=== PATIENT | female | born 1990 | race Caucasian/White ===

== ENCOUNTER 2018-08-19 22:12 | Observation (INO) ==
--- NOTE | 2018-08-20 08:53 | Internal Med History&Physical ---
Date of Encounter: 08/20/18 Time of Encounter: 08:52 Internal Medicine - H&P: HPI Chief complaint: ataxia Admitted From: Intrahospital Transfer History of present illness: Ms. 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 She was in [facility] until 12 AM, when she developed 'stomach bug' with nausea, vomiting, chills and subjective fever for half a day. She felt fine on 08/17 and 08/18. 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 Her BP was 123/75, and lowest BG documented was 92. She went home, and slept for 5-6 hours, but symptoms did not improve, so she went to [facility] ER, where she had a head CT without acute abnormality, and was transferred to [facility]. Currently, she has persistent dizziness with movement of head (as if the room is moving horizontally from side to side). She feels like going in a spiral due to dizziness when she closes her eyes. She has glowing black spots of variable intensity and size in both visual moseley. She had ne episode of expressive aphasia on 08/19 before going to [facility]. Never had such symptoms in the past. Never had migraines. Mild neck pain/occipital headache in the past. Dry cough. No falls. A 10-point pertinent ROS is otherwise negative for current headache, n, v, abd pain, d, c, fevers, chills, dysuria, focal motor deficits or other symptoms on a 10-point ROS. Pertinent labs: 08/19/18 Cr 0.68 Na [address] head: no acute abnormality # Dizziness, ataxia, flashers in front of eyes - Differential could be vestibulitis with recent viral illness, atypical migraine though there is no history, cerebellar CVA though there are no risk factors - Considering acute onset qand episode of expressive aphasia, will check MRI brain, and request neurology consult - less likely to be drug effect, will check UDS to complete work up - treatment pending further diagnostic work up # VTE prophy: not indicated unless prolonged admission Past Med Surg Social Fam HX - Past Medical History Medical history: arthritis Psychiatric history: no psych history - Past Surgical History Surgical History: Additional surgical history: gallbladder removal , plate and 6 screws in Right ankle. - Social History Smoking Status: Never smoker Smokeless Tobacco Status: No Alcohol use: none Drug use: none - Family History Mother Adopted: No Family Member Ethnicity: Non- Living Status: Still Living Hx Family Cardiac Disorders: Yes (Grandmother-pacemaker) Hx Family Respiratory Disorders: Yes (Mom- COPD) Hx Family Cancer: Yes (Mother) - Additional Family History Additional family history: Grandfather had brain aneurysm Internal Medicine - H&P: Meds Acetaminophen [Tylenol] 650 mg PO Q6HR PRN tablet 12/01/17 [Rx] Norgestrel-Ethinyl Estradiol [Cryselle-28 Tablet] 1 tab PO DAILY 12/01/17 [History] OxyCODONE/APAP 5/325 [Percocet 5/325 MG] 1 each PO Q6H PRN 3 Days #12 tablet 12/01/17 [Rx] Allergy/AdvReac Type Severity Reaction Status Date / Time naproxen [From Naprosyn] AdvReac Vomiting Verified 12/01/17 07:22 All Systems PM: A 10-system review of systems was performed and is negative for pertinent findings except as documented above in the HPI. - Constitutional Vitals: Temp Pulse Resp BP Pulse Ox 98.3 F 82 16 119/81 98 08/20/18 07:32 08/20/18 07:32 08/20/18 07:32 08/20/18 07:32 08/20/18 07:32 Exam: alert, oriented, no acute cardioresp distress no photophobia, EOM intact no icterus moist oral mucosa no nuchal rigidity S1, S2, no MRG CTABL, no wheezes or rales no ankle edema soft NT, ND, no guarding or rebound alert, oriented x 3, no dysarthria, no focal motor deficits, there was occasional non-sustained nystagmus on right lateral gaze with fast component to right, not always reproducible, no cranial nerve deficits able to stand with closed eyes, but sways if tries to walk, gait not assessed for safety - Time Spent With Patient Total time spent is greater than 50% in coordination of care (as documented) at patient's floor/unit and/or counseling patient:
[2018-08-20] MEDS ORDERED: Naloxone 0.4 MG/ML INJ IVP PRN (09:45)
[2018-08-20] MEDS ORDERED: Gadolinium Contrast Agent (WT Based) IV PRN (09:49)
[2018-08-20 10:43] LABS: Basophils % 0.7 %; Eosinophils # 0.1 K/mcL (0.0-0.6); Eosinophils % 0.9 %; Hematocrit 39.3 % (35.3-44.9); Hemoglobin 13.2 g/dL (11.5-15.4); Immature Granulocytes % 0.3 % (0-4); Lymphocytes % 34.7 %; Mean Corpuscular HGB Conc 33.6 g/dL (31.6-35.5); Mean Corpuscular Hemoglobin 29.7 pg (28.0-33.3); Mean Corpuscular Volume 88.3 fL (83.0-100.0); Mean Platelet Volume 8.9 fL (9.4-12.4); Monocytes # 0.4 K/mcL (0.0-1.3); Monocytes % 7.4 %; Neutrophils # 3.2 K/mcL (1.6-8.9); Platelet Count 254 K/mcL (140-400); Red Blood Count 4.45 M/mcL (3.82-4.97)
[2018-08-20 10:51] LABS: INR 1.1; Prothrombin Time 12.5 Seconds (9.4-12.1)
[2018-08-20 11:02] LABS: Alanine Aminotransferase 37 Units/L (7-52); Albumin 3.8 g/dL (3.5-5.7); Albumin/Globulin Ratio 1.5 (1.1-2.2); Alkaline Phosphatase 66 Units/L (34-104); Aspartate Amino Transferase 25 Units/L (13-39); BUN/Creatinine Ratio 12 (6-26); Bilirubin,Total 0.6 mg/dL (0.3-1.0); Blood Urea Nitrogen 7 mg/dL (6-20); Calcium 8.8 mg/dL (8.6-10.3); Carbon Dioxide 24 mEq/L (23-29); Chloride 107 mEq/L (98-107); Globulin 2.6 g/dL (2.4-3.5); Glucose 95 mg/dL (70-105); Osmolality,Calculated 284 (280-300); Potassium 3.7 mEq/L (3.5-5.1); Sodium 138 mEq/L (136-145); Total Protein 6.4 g/dL (6.4-8.9); eGFR For Non-African Americans > 60 (> 60)
[2018-08-20] MEDS: Acetaminophen 325 MG TABLET PO PRN ×2 (11:44→18:40)
--- NOTE | 2018-08-20 15:54 | Neurology - Consult Note ---
Addendum entered and electronically signed by Ritu Smith MD 08/20/18 16:31: No AM labs indicated. Neurology appreciated, paging center will help connect with ophthalmology Original Note: Date of Encounter: 08/20/18 Time of Encounter: 15:50 Assessment and Plan (1) Vision abnormalities Current Visit: Yes Status: Acute I am unable to identify any abnormalities that might explain this phenomena. The MRI scan of the brain is normal I see no evidence of papilledema or optic nerve injury. There is no nystagmus identified. No opsoclonus. She has normal strength bulk and tone. Deep tendon reflexes are normal. Sensation is normal as well. Patient denies any specific emotional trauma or recent stress. However I am not able to attribute any of this to her primary neurologic etiology. Consider ophthalmologic consultation. Otherwise I will reevaluate her at your request. No further recommendations. History of Present Illness HPI: The chart was reviewed, the patient was seen and examined personally. I did review the MRI scans of the brain as well as her laboratory testing. Ms. Meadows is a 27 year old female who denies any recent history of recurrent visual phenomena or illness presents with complaints of flashing lights and spots with glowing halos around them. Apparently this happened initially on . She developed symptoms of gastritis on the day which subsided over thereafter. She states that she felt fine on August 17 and . [employer] work on August 19 she felt sudden onset of dizziness and blurred vision and black spots in flashing lights in front of her eyes. She states that these spots a persistent ever since then. She also complains of persistent dizziness and does describe of horizontal spinning movements of the room. She denies any headache currently. Denies illicit drug use. Her lab work was all normal and as mentioned above I did review the MRI scan of the brain was normal as well. Past Med Surg Social Fam HX - Past Medical History Medical history: arthritis Psychiatric history: no psych history - Past Surgical History Surgical History: Additional surgical history: gallbladder removal , plate and 6 screws in Right ankle. - Social History Smoking Status: Never smoker Smokeless Tobacco Status: No Alcohol use: none Drug use: none - Family History Mother Adopted: No Family Member Ethnicity: Non- Living Status: Still Living Hx Family Cardiac Disorders: Yes (Grandmother-pacemaker) Hx Family Respiratory Disorders: Yes (Mom- COPD) Hx Family Cancer: Yes (Mother) Medications and Allergies Loratadine/Pseudophed (12 HR) [Claritin D (12HR)] 1 tab PO BID 08/20/18 [History] Phentermine HCl [Adipex-P] 37.5 mg PO DAILY 08/20/18 [History] Allergy/AdvReac Type Severity Reaction Status Date / Time naproxen [From Naprosyn] AdvReac Vomiting Verified 12/01/17 07:22 All Systems: The remainder of the systems were reviewed and are negative Review of Systems: Balance of the systems review is negative. Physical Examination - Vital Signs Vital Signs: Initial Vital Signs Temp Pulse Resp BP Pulse Ox 98.1 F 73 16 119/80 98 08/20/18 01:20 08/20/18 01:20 08/20/18 01:20 08/20/18 01:20 08/20/18 01:20 - Exam Exam: General Examination: *CONSTITUTIONAL: normal *GENERAL APPEARANCE OF PATIENT appears healthy and well groomed *EYES: pupils equal, round, reactive to light and accommodation, conjunctiva clear without masses or ulcerations, fundi normal. *CARDIOVASCULAR no peripheral edema, distal temperature normal, dorsalis pedis pulses normal. Refer to vital signs Musculoskeletal: *GAIT AND STATION normal, with normal Romberg testing, no abnormalities such as broad base gait or spasticity *ASSESSMENT OF MUSCLE STRENGTH IN THE UPPER AND LOWER EXTREMITIES deltoid, bicep, tricep, hood fitter strength, hip flexors ,anterior tibialis, dorsoflexion of the foot normal. *MUSCLE TONE IN THE UPPER AND LOWER EXTREMITIES normal. No abnormal movements, fasciculations or atrophy identified. Neurological: *ORIENTATION to time and place *RECURRENT AND REMOTE MEMORY intact *ATTENTION AND CONCENTRATION are normal *LANGUAGE FUNCTION no significant aphasia or dysarthia was noted. *FUND OF KNOWLEDGE aware of current events, past history, vocabulary *MENTAL attention span and concentration normal. *CN II optic fundi were normal, no papilledema noted. *CN III,IV, PERRLA extraocular eye movements were full, no nystagmus and no ptosis noted. *CN V shows normal sensation and jaw opens symmetrically. *CN VII shows normal facial movement symmetrically, upper and lower bilaterally. *CN VIII shows no significant hearing loss on examination in the office. There is no nystagmus identified. *CN IX,,X palate elevated symmetrically and normal gag reflex was noted. *CN XI normal strength in the sternocleidomastoid muscles, symmetrical shoulder shrugging. *CN XII tongue protruded in the midline, with normal strength and movement. *SENSORY EXAMINATION pinprick sensation intact, and light touch(vibration sense). *REFLEXES: deep tendon reflexes were normal and symmetrical , grade 2/4 diffusely, no pathological reflexes were noted. *CEREBELLAR TESTING normal finger to nose, heel/knee/iniguez, her gait is somewhat apprehensive however not ataxic. *PAIN LEVEL -0 Results - Laboratory Findings CBC and BMP: 08/20/18 10:06 08/20/18 10:06 Abnormal lab findings: Abnormal lab results MPV 8.9 fL (9.4-12.4) L 08/20/18 10:06 PT 12.5 Seconds (9.4-12.1) H 08/20/18 10:06 Creatinine 0.59 mg/dL (0.60-1.20) L 08/20/18 10:06 Consult Discharge Plan - Plan Referrals: Opal Benson, EKG/ECG TECHNICIAN [Primary Care Provider] - (Unable to make follow up appointment due to office being closed. Please call Wednesday to schedule appointment for 5-7 days from date of discharge. )
--- NOTE | 2018-08-20 18:03 | Internal Medicine Consult Note ---
Date of Encounter: 08/20/18 Time of Encounter: 17:59 Internal Medicine - CN: HPI - Data of Consult Requesting Physician: Ann Z Idris Patient is a 27-year-old white female who reports black spots sometimes glowing spots everywhere in her visual field sometimes associated with dizziness since night, the night before last. The patient reports that she feels like she is in a hurricaine like her surroundings are moving or someone is moving her head around. She denies any eye pain or decreased vision. She denies any history of eye injuries or eye surgeries. She reports that she does not wear corrective lenses. Examination revealed visual acuity without correction is 20/20 in the right eye and 20/20 in the left eye (near equivalent Snellen). The pupils were equal round and reactive to light with no relative afferent pupillary defects noted. Ocular motility testing revealed full excursions of both eyes to all cardinal positions of gaze. Confrontation visual moseley were full and normal in both eyes. Slit-lamp examination revealed normal eyelids in both eyes. The conjunctiva was normal in both eyes. The cornea was clear in both eyes. The anterior chamber was shallow grade slit to +1 in both eyes. The anterior chamber was clear in both eyes. The iris was normal in both eyes. Intraocular pressures were normal at 14 mmHg in the right eye and 12 mmHg in the left eye via applanation. The pupils were dilated with 1% tropicamide and 2-1/2% phenylephrine drops. Following dilation of the pupils further examination revealed a clear lens in both eyes. The vitreous was clear in both eyes. The optic nerve heads were normal in both eyes with a cup-to-disc ratio of 0.3 in the right eye and 0.2 in the left eye. The macula, posterior pole, retinal vessels, and retinal periphery were normal in both eyes. Impression: 1. Subjective visual disturbance. This may be due to a migraine event and / or may be stress related. 2. Anatomical narrow anterior chamber angles in both eyes. I do not believe that this is at all related to the patient's above noted subjective visual disturbance. I did review with patient the warning symptoms of angle-closure glaucoma including a red irritated eye, severe eye pain, eyebrow aches, nausea vomiting and a mid-dilated pupil. I would recommend that the patient be evaluated for this at her soonest convenience after discharge. I would would be happy to see her in my office for this evaluation if desired. - Consult Narrative History of present illness: Ms. Meadows is a 27 year old female Past Med Surg Social Fam HX - Past Medical History Medical history: arthritis Psychiatric history: no psych history - Past Surgical History Surgical History: Additional surgical history: gallbladder removal , plate and 6 screws in Right ankle. - Social History Smoking Status: Never smoker Smokeless Tobacco Status: No Alcohol use: none Drug use: none - Family History Mother Adopted: No Family Member Ethnicity: Non- Living Status: Still Living Hx Family Cardiac Disorders: Yes (Grandmother-pacemaker) Hx Family Respiratory Disorders: Yes (Mom- COPD) Hx Family Cancer: Yes (Mother) Internal Medicine - CN: Meds Phentermine HCl [Adipex-P] 37.5 mg PO DAILY 08/20/18 [History] RX: Loratadine/Pseudophed (12 HR) [Claritin D (12HR)] 1 tab PO BID 08/20/18 [History] Allergy/AdvReac Type Severity Reaction Status Date / Time naproxen [From Naprosyn] AdvReac Vomiting Verified 12/01/17 07:22 Internal Med - CN: Exam - Constitutional Vitals: Temp Pulse Resp BP Pulse Ox 98.1 F 90 16 113/75 98 08/20/18 15:32 08/20/18 15:32 08/20/18 15:32 08/20/18 15:32 08/20/18 15:32 Internal Medicine - CN: Reslt - Labs CBC & Chem 7: 08/20/18 10:06 08/20/18 10:06 Labs: Short CBC 08/20/18 Range/Units 10:06 WBC 5.8 (4.3-11.1) K/mcL Hgb 13.2 (11.5-15.4) g/dL Hct 39.3 (35.3-44.9) % Plt Count 254 (140-400) K/mcL Neutrophils # 3.2 (1.6-8.9) K/mcL BMP 08/20/18 10:06 Sodium 138 Potassium 3.7 Chloride 107 Carbon Dioxide 24 BUN 7 Creatinine 0.59 L Glucose 95 Calcium 8.8 Liver Function 08/20/18 Range/Units 10:06 Total Bilirubin 0.6 (0.3-1.0) mg/dL AST 25 (13-39) Units/L ALT 37 (7-52) Units/L Alkaline Phosphatase 66 (34-104) Units/L Albumin 3.8 (3.5-5.7) g/dL - ABG Interpretation ABG results: PT/INR, D-dimer PT 12.5 Seconds (9.4-12.1) H 08/20/18 10:06 - Impressions Impressions Brain MRI 08/20/18 09:49 IMPRESSION: Essentially unremarkable contrast-enhanced brain MRI. Low T1 signal within the upper cervical spine may be secondary to anemia, although nonspecific by imaging. D/ / 08/20/2018 12:04:52 Leon Meléndez MD / partha Interpreting Provider: Leon Meléndez MD Consult Discharge Plan - Plan Referrals: Opal Benson, BETSEY [Primary Care Provider] - (Unable to make follow up appointment due to office being closed. Please call Wednesday to schedule appointment for 5-7 days from date of discharge. )
[2018-08-20] MEDS ORDERED: Ibuprofen 400 MG TABLET PO ONE (20:59)
--- NOTE | 2018-08-21 14:58 | Internal Med Progress Note ---
Hospitalist Progress Note - Encounter Date of Encounter: 08/21/18 Time of Encounter: 14:56 - Subjective Interval History: Patient still reported occasional dizziness, lasted about 3-4 minutes. She also having black spots on both visual moseley. She had occasional headache but not constant. She has no fever, chills, or night sweats. She has no joint pain, or swelling. She denies skin rashes, oral ulcers, or jaw claudication. - Exam Vitals: Temp Pulse Resp BP Pulse Ox 98.7 F 93 18 129/85 98 08/21/18 12:22 08/21/18 12:22 08/21/18 12:22 08/21/18 12:22 08/21/18 12:22 Exam: alert, oriented, no acute cardioresp distress no photophobia, EOM intact no icterus moist oral mucosa no nuchal rigidity S1, S2, no MRG CTABL, no wheezes or rales no ankle edema soft NT, ND, no guarding or rebound alert, oriented x 3, no dysarthria, no focal motor deficits, there was occasional non-sustained nystagmus on right lateral gaze with fast component to right, not always reproducible, no cranial nerve deficits able to stand with closed eyes, but sways if tries to walk, gait not assessed for safety - Assessment and Plan (1) Vertigo Current Visit: Yes Status: Acute Assessment and Plan: 27-year-old female presented with acute onset of vertigo with associated visual field defects. She also reported expressive aphasia. Vertigo was intermittent, lasted about 3-4 minutes each time. Visual field defects was described as moving black spots on both eyes. - Initially stroke was suspected, however, brain MRI as no acute infarct. Neurology was consulted, patient does not have papilledema on fundal exam per neurology. Ophthalmology was consulted, patient has normal visual acuity. The angle of the anterior chamber was slightly narrowed, narrow angle glaucoma was suspected, outpatient follow-up with mechanic's assistant was suggested. - Given the patient history of obesity and on bolus control pills, pseudotumor cerebri was suspected, however, patient has normal fundal exam, there acute onset of vertigo cannot be explained. - Central nervous system vasculitis was suspected, SHIRLEY, ESR, CRP were ordered. - Susac syndrome was suspected given both vision and inner ear symptoms. However, MRI does not showed typical changed of Susac disease. - Antivert for symptoms control. (2) Visual field defect Current Visit: Yes Status: Acute Assessment and Plan: same as above. DVT Prophylaxis: Ambulation. - Time Spent with Patient Total time spent is greater than 50% in coordination of care (as documented) at patient's floor/unit and/or counseling patient: Greater than 35 minutes Plan of Care Discussed with: patient Internal Medicine: Result - Labs CBC & Chem 7: 08/20/18 10:06 08/20/18 10:06 - ABG Interpretation ABG results: PT/INR, D-dimer PT 12.5 Seconds (9.4-12.1) H 08/20/18 10:06 - Impressions Impressions Brain MRI 08/20/18 09:49 IMPRESSION: 1. Essentially unremarkable contrast-enhanced brain MRI. 2. Low T1 signal within upper cervical spine may be secondary to anemia, although nonspecific by imaging. Other differential includes marrow involving or marrow replacing processes. D/ / 08/20/2018 12:04:52 Leon Meléndez MD / partha Interpreting Provider: Leon Meléndez MD - VTE Reasons for not Prescribing Prophylaxis: Treatment not Indicated - Low risk for VTE Consult Discharge Plan - Plan Referrals: Opal Benson, BETSEY [Primary Care Provider] - (Unable to make follow up appointment due to office being closed. Please call Wednesday to schedule appointment for 5-7 days from date of discharge. )
[2018-08-21] MEDS: Acetaminophen 325 MG TABLET PO PRN (19:54)
[2018-08-22 10:50] VITALS: BP 120/84
[2018-08-22] MEDS: Acetaminophen 325 MG TABLET PO PRN (13:49)
--- NOTE | 2018-08-22 14:30 | Discharge Summary ---
- NOTES TO OUTPATIENT PROVIDER Notes to Outpatient Provider: f/u with Yanira Mckinley within a week. Orders not resulted at time of discharge: Pending orders 08/21/18 15:39 SHIRLEY IgG KEEGAN rflx IFA Routine Date of Encounter: 08/22/18 Time of Encounter: 14:28 - Discharge Diagnosis (1) Vertigo Priority: Primary Status: Acute (2) Visual field defect Priority: Primary Status: Acute Hospital course: Ms. 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 She was in [facility] until 08/16 AM, when she developed 'stomach bug' with nausea, vomiting, chills and subjective fever for half a day. She felt fine on 08/17 and 08/18. 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 Her BP was 123/75, and lowest BG documented was 92. She went home, and slept for 5-6 hours, but symptoms did not improve, so she went to [facility] ER, where she had a head CT without acute abnormality, and was transferred to [facility]. Currently, she has persistent dizziness with movement of head (as if the room is moving horizontally from side to side). She feels like going in a spiral due to dizziness when she closes her eyes. She has glowing black spots of variable intensity and size in both visual moseley. She had ne episode of expressive aphasia on 08/19 before going to [facility]. Never had such symptoms in the past. Never had migraines. MRI of brain was performed and no acute infarct or other abnormalities were detected. Neuro was consulted and a fundal exam did not show papilledema. Ophthalmology was consulted and norrow-angle glaucoma was suspected. Her ESR and CRP both are within normal limits. Her vertigo and visual field defects although not abated, but not worsened. At this time, there is no clear etiology was identified. Viral infection such was vestibular neuronitis was suspected. Pt will be discharged home. She will f/u with ophthalmology within a week. Discharge discussed with: patient Time spent discussing smoking cessation with patient: more than 10 minutes - Time Spent with Patient Total time spent providing and/or coordinating discharge services: Greater than 30 minutes - Discharge Medications Prescriptions: Meclizine [Antivert] 25 mg PO TID PRN #20 tablet PRN Reason: Dizziness Home Medications: Loratadine/Pseudophed (12 HR) [Claritin D (12HR)] 1 tab PO BID 08/20/18 [History] Phentermine HCl [Adipex-P] 37.5 mg PO DAILY 08/20/18 [History] Meclizine [Antivert] 25 mg PO TID PRN #20 tablet 08/22/18 [Rx] Allergies/Adverse Reactions: Allergy/AdvReac Type Severity Reaction Status Date / Time naproxen [From Naprosyn] AdvReac Vomiting Verified 12/01/17 07:22 Date of admission: 08/19/18 23:54 Primary care physician: Opal Benson CNP Consults: 08/20/18 09:51 Consult to Neurology [CONS] Routine Consulting Provider: [facility] Reason for Consult: ataxia, flashers, transient aphasia Call Completed: Yes 08/20/18 16:37 Consult to Physician [CONS] Routine Consulting Provider: Yunier Doyle Reason for Consult: Flashing spots in front of eyes Call Completed: Yes Anticipated date of discharge: 08/22/18 - Constitutional Vitals: Temp Pulse Resp BP Pulse Ox 98.8 F 95 18 120/84 96 08/22/18 10:48 08/22/18 10:48 08/22/18 10:48 08/22/18 10:48 08/22/18 10:48 General appearance: Present: A&O X 3 Exam: alert, oriented, no acute cardioresp distress no photophobia, EOM intact no icterus moist oral mucosa no nuchal rigidity S1, S2, no MRG CTABL, no wheezes or rales no ankle edema soft NT, ND, no guarding or rebound alert, oriented x 3, no dysarthria, no focal motor deficits, there was occasional non-sustained nystagmus on right lateral gaze with fast component to right, not always reproducible, no cranial nerve deficits able to stand with closed eyes, but sways if tries to walk, gait not assessed for safety - Patient Status Disposition: Home, Self-Care Condition: Fair Functional capacity at discharge: independent ambulation - Discharge Instructions Follow Up With: Opal Benson CNP [Primary Care Provider] - (Unable to make follow up appointment due to office being closed. Please call Wednesday to schedule appoint ment for 5-7 days from date of discharge. ) - Diet and Activity Activity: resume usual activities as tolerated Diet: advance to your usual diet - VTE Reasons for not Prescribing Prophylaxis: Treatment not Indicated - Low risk for VTE
[2018-08-24 09:58] LABS: ANA IgG by ELISA DETECTED (None Detected)
== END 2018-08-22 15:19 | disposition home or self-care (01) ==
LOC: 3BNU
PROVIDERS: ADMIT Internal Medicine Nephrology; ATTEND Internal Medicine Nephrology

== ENCOUNTER 2020-07-25 21:47 | Observation (INO) ==
[2020-07-25] MEDS: Ringers Solution, Lactated 1,000 ML IVC SCH (22:45)
[2020-07-25 23:04] LABS: Bacteria,Urine Few per hpf (None-Few); Bilirubin,Urine Negative (Negative); Blood,Urine Negative (Negative); Calcium Oxalate Crystals,Urine Present; Clarity,Urine Turbid (Clear); Color,Urine Yellow (Yellow); Glucose,Urine (UA) Normal (Normal); Ketones,Urine Negative (Negative); Leukocyte Esterase,Urine Small (Negative); Mucus,Urine Moderate per lpf (None-Few); Nitrite,Urine Negative (Negative); Protein,Urine 50 mg/dL (Neg-Trace); RBC,Urine 0-3 per hpf (0-3); Specific Gravity,Urine 1.026 (1.010-1.025); Squamous Epithelial Cell,Urine Many per hpf (None-Few)
[2020-07-26] MEDS: Ringers Solution, Lactated 1,000 ML IVC SCH (00:53)
== END 2020-07-26 01:55 | disposition home or self-care (01) ==
LOC: 1NENULAB
PROVIDERS: ADMIT Advanced Practice Midwife; ATTEND Advanced Practice Midwife

== ENCOUNTER → 2020-08-13 20:34 | Observation (INO) ==
[2020-08-13 19:53] LABS: Protein/Creatinine Ratio,Urine 0.14 mg/mg (0.00-0.20)
[2020-08-13 19:59] LABS: Basophils % 0.3 %; Eosinophils % 0.5 %; Hematocrit 36.8 % (35.3-44.9); Hemoglobin 11.9 g/dL (11.5-15.4); Immature Granulocytes % 0.4 % (0-4); Lymphocytes # 2.2 K/mcL (0.6-4.6); Lymphocytes % 28.3 %; Mean Corpuscular HGB Conc 32.3 g/dL (31.6-35.5); Mean Corpuscular Hemoglobin 26.1 pg (28.0-33.3); Mean Corpuscular Volume 80.7 fL (83.0-100.0); Monocytes # 0.6 K/mcL (0.0-1.3); Monocytes % 7.1 %; Neutrophils # 4.9 K/mcL (1.6-8.9); Platelet Count 244 K/mcL (140-400); Red Blood Count 4.56 M/mcL (3.82-4.97); Red Cell Distribution Width 13.2 % (11.5-14.5); Segmented Neutrophils % 63.4 %; White Blood Count 7.7 K/mcL (4.3-11.1)
[2020-08-13 20:07] LABS: Alanine Aminotransferase 7 Units/L (7-52); Aspartate Amino Transferase 11 Units/L (13-39); BUN/Creatinine Ratio 13 (6-26); Blood Urea Nitrogen 6 mg/dL (6-20); Lactate Dehydrogenase 138 Units/L (140-271); Uric Acid 4.1 mg/dL (2.3-7.6); eGFR For African Americans > 60 (> 60); eGFR For Non-African Americans > 60 (> 60)
[~2020-08-13 20:34] MED LIST: Acetaminophen/Butalbital/CaffeineTABLET PO PRN
== END | disposition home or self-care (01) ==
LOC: 1NENULAB
PROVIDERS: ADMIT Obstetrics & Gynecology; ATTEND Obstetrics & Gynecology

== ENCOUNTER 2020-08-17 10:16 | Inpatient (IN) ==
[2020-08-17 09:33] LABS: Basophils % 0.2 %; Eosinophils % 0.1 %; Hematocrit 37.2 % (35.3-44.9); Hemoglobin 11.8 g/dL (11.5-15.4); Immature Granulocytes % 0.4 % (0-4); Lymphocytes % 9.3 %; Mean Corpuscular HGB Conc 31.7 g/dL (31.6-35.5); Mean Corpuscular Hemoglobin 25.8 pg (28.0-33.3); Mean Corpuscular Volume 81.4 fL (83.0-100.0); Mean Platelet Volume 9.7 fL (9.4-12.4); Monocytes # 0.5 K/mcL (0.0-1.3); Monocytes % 4.7 %; Neutrophils # 9.4 K/mcL (1.6-8.9); Platelet Count 232 K/mcL (140-400); Red Blood Count 4.57 M/mcL (3.82-4.97); Red Cell Distribution Width 13.2 % (11.5-14.5); Segmented Neutrophils % 85.3 %
[2020-08-17 09:37] LABS: Protein/Creatinine Ratio,Urine 0.17 mg/mg (0.00-0.20)
[2020-08-17 09:40] LABS: Bilirubin,Urine Negative (Negative); Blood,Urine Negative (Negative); Clarity,Urine Clear (Clear); Color,Urine Yellow (Yellow); Glucose,Urine (UA) Normal (Normal); Ketones,Urine Negative (Negative); Leukocyte Esterase,Urine Negative (Negative); Nitrite,Urine Negative (Negative); PH,Urine 6.5 pH Units (5.0-8.0); Protein,Urine Trace mg/dL (Neg-Trace); Specific Gravity,Urine > 1.030 (1.010-1.025)
[2020-08-17 09:52] LABS: Alanine Aminotransferase 7 Units/L (7-52); Aspartate Amino Transferase 10 Units/L (13-39); BUN/Creatinine Ratio 7 (6-26); Blood Urea Nitrogen 4 mg/dL (6-20); Lactate Dehydrogenase 139 Units/L (140-271); Uric Acid 3.9 mg/dL (2.3-7.6); eGFR For African Americans > 60 (> 60); eGFR For Non-African Americans > 60 (> 60)
[~2020-08-17 10:16] MED LIST changes: +Acetaminophen 325 MG TABLET PO ONE; -Acetaminophen/Butalbital/CaffeineTABLET PO PRN; +Famotidine 20 MG/2 ML VIAL IVP PRN; +Lidocaine 1% 20 ML MDV INFILT PRN; +Metoclopramide 10 MG/2 ML VIAL IVP PRN; +Naloxone 0.4 MG/ML INJ IVP PRN; +Ondansetron 4 MG/2 ML VIAL IVP PRN; +Ringers Solution, Lactated 1,000 ML IVC SCH; +Ringers Solution, Lactated 1,000 ML ONE
[2020-08-17] MEDS ORDERED: Ringers Solution, Lactated 1,000 ML IVC SCH (10:30)
[2020-08-17 11:15] LABS: Adenovirus Not Detected (Not Detect); Bordetella Pertussis Not Detected (Not Detect); Chlamydophila pneumoniae Not Detected (Not Detect); Coronavirus 229E Not Detected (Not Detect); Coronavirus HKU1 Not Detected (Not Detect); Coronavirus NL63 Not Detected (Not Detect); Coronavirus OC43 Not Detected (Not Detect); Human Metapneumovirus Not Detected (Not Detect); Human Rhinovirus/Enterovirus Not Detected (Not Detect); Influenza A Subtype 2009 H1 Not Detected (Not Detect); Influenza B Not Detected (Not Detect); Mycoplasma pneumoniae Not Detected (Not Detect); Parainfluenza Virus 1 Not Detected (Not Detect); Parainfluenza Virus 2 Not Detected (Not Detect); Parainfluenza Virus 3 Not Detected (Not Detect); Parainfluenza Virus 4 Not Detected (Not Detect); Respiratory Syncytial Virus Not Detected (Not Detect); SARS-CoV-2 Not Detected (Not Detect)
[2020-08-17] MEDS: Oxytocin 20 units/ LR 1000 mL 20 UNIT/1,000 ML BAG IVC SCH (11:47)
[2020-08-17] MEDS ORDERED: Cortisporin *EAR*Susp 10 ML BOTTLE RIGHT EAR SCH (15:03)
[2020-08-17] MEDS ORDERED: *HR* FentaNYL (PF) 100 MCG/2 ML VIAL IVP PRN (15:46)
[2020-08-17] MEDS ORDERED: Lidocaine TOPICAL Soln 50 ML BOTTLE TP ONE (18:03)
[2020-08-17] MEDS: Acetaminophen 325 MG TABLET PO PRN (18:41)
[2020-08-17] MEDS ORDERED: Epidural Premix (fent/bupiv) 110 ML EP ONE (19:47)
[2020-08-17] MEDS ORDERED: EPHEDrine 50 MG/ML VIAL IVP PRN (20:18)
[2020-08-18] MEDS: Acetaminophen 325 MG TABLET PO PRN (00:59)
[2020-08-18] MEDS: Epidural Premix (fent/bupiv) 110 ML EP SCH ×2 (02:01→09:34)
[2020-08-18] MEDS ORDERED: Ropivacaine/PF 0.2% 20 ML VIAL ONE (05:47)
[2020-08-18] MEDS ORDERED: *HR* FentaNYL (PF) 100 MCG/2 ML VIAL ONE ×2 (05:47→10:19)
[2020-08-18] MEDS: *HR* OxyCODONE/APAP 5/325 TABLET PO PRN ×2 (08:43→13:49)
[2020-08-18] MEDS: Oxytocin 20 units/ LR 1000 mL 20 UNIT/1,000 ML BAG IVC SCH (09:38)
[2020-08-18] MEDS ORDERED: Lidocaine/EPI 1:100k 1% 50 ML VIAL INFILT ONE (09:48)
[2020-08-18] MEDS ORDERED: Rho Immune Globulin 1,500 UNIT SYRINGE IM PRN (16:10)
[2020-08-18] MEDS ORDERED: Oxytocin 20 units/ LR 1000 mL 20 UNIT/1,000 ML BAG IVC SCH (16:10)
[2020-08-18] MEDS ORDERED: Measles/Mumps/Rubella Vacc 0.5 ML VIAL SQ PRN (16:10)
[2020-08-18] MEDS ORDERED: Acetaminophen 325 MG TABLET PO PRN (16:10)
[2020-08-18] MEDS ORDERED: Oxytocin 20 units/ LR 1000 mL 20 UNIT/1,000 ML BAG IVC ONE (16:10)
[2020-08-18] MEDS ORDERED: Benzocaine/Menthol 56 GM AEROSOL SPRAY TP PRN (16:10)
[2020-08-18] MEDS ORDERED: *HR* OxyCODONE/APAP 5/325 TABLET PO PRN (16:27)
[2020-08-18] MEDS: Ibuprofen 600 MG TABLET PO PRN (16:45)
[2020-08-18] MEDS: Ampicillin/Sulbactam 1,500 MG in 0.9 % Sodium Chloride Mini Bag 100 ML IVPB SCH ×2 (18:07→22:59)
[2020-08-18] MEDS: Ciprofloxacin/Dex *EAR* Susp 7.5 ML BOTTLE RIGHT EAR SCH (22:58)
[2020-08-19] MEDS: Ibuprofen 600 MG TABLET PO PRN (03:26)
[2020-08-19 05:14] LABS: Basophils % 0.1 %; Hematocrit 35.7 % (35.3-44.9); Hemoglobin 11.1 g/dL (11.5-15.4); Immature Granulocytes % 0.5 % (0-4); Lymphocytes % 7.2 %; Mean Corpuscular HGB Conc 31.1 g/dL (31.6-35.5); Mean Corpuscular Hemoglobin 25.6 pg (28.0-33.3); Mean Corpuscular Volume 82.3 fL (83.0-100.0); Mean Platelet Volume 10.2 fL (9.4-12.4); Monocytes # 0.1 K/mcL (0.0-1.3); Monocytes % 0.9 %; Neutrophils # 12.8 K/mcL (1.6-8.9); Platelet Count 215 K/mcL (140-400); Red Blood Count 4.34 M/mcL (3.82-4.97); Red Cell Distribution Width 13.3 % (11.5-14.5); Segmented Neutrophils % 91.3 %; White Blood Count 14.1 K/mcL (4.3-11.1)
[2020-08-19] MEDS: Ampicillin/Sulbactam 1,500 MG in 0.9 % Sodium Chloride Mini Bag 100 ML IVPB SCH ×3 (06:39→17:44)
[2020-08-19] MEDS: Ciprofloxacin/Dex *EAR* Susp 7.5 ML BOTTLE RIGHT EAR SCH ×2 (08:02→20:09)
[2020-08-19] MEDS: Prenatal Vit/FA 1 EACH TABLET PO SCH (08:02)
[2020-08-19] MEDS ORDERED: Lanolin 7 G OINT...G. TP PRN (14:46)
[2020-08-20] MEDS: Ampicillin/Sulbactam 1,500 MG in 0.9 % Sodium Chloride Mini Bag 100 ML IVPB SCH ×2 (00:37→05:23)
[2020-08-20] MEDS: Ibuprofen 600 MG TABLET PO PRN (00:42)
[2020-08-20 08:13] VITALS: BP 131/70
[2020-08-20] MEDS: Prenatal Vit/FA 1 EACH TABLET PO SCH (09:08)
[2020-08-20] MEDS: Ciprofloxacin/Dex *EAR* Susp 7.5 ML BOTTLE RIGHT EAR SCH (09:09)
== END 2020-08-20 12:46 | disposition home or self-care (01) | DRG 560 ==
LOC: 1NENULAB → 1NENUOBS 08-18 16:10
PROVIDERS: ADMIT Obstetrics & Gynecology; ATTEND Obstetrics & Gynecology